=== PATIENT | male | born 1985 | race African-American/Black ===

== ENCOUNTER 2022-09-01 16:03 | Outpatient (CLI) | payer SELFPAY | END 2022-09-01 16:04 | disposition home or self-care (01) | PROVIDERS: PCP Family Medicine; Visit Provider Family Medicine | DX: F29 Unspecified psychosis not due to a substance or known physiological condition (principal); R45.851 Suicidal ideations | CPT/HCPCS: A0998 ==

== ENCOUNTER 2022-11-19 21:50 | Outpatient (CLI) | payer OTHER, SELFPAY | END 2022-11-19 21:51 | disposition home or self-care (01) | LOC: AMB 11-25 17:00 | PROVIDERS: Visit Provider Family Medicine | DX: F10.129 Alcohol abuse with intoxication, unspecified (principal) | CPT/HCPCS: A0425; A0429 ==

== ENCOUNTER 2022-11-19 22:25 | Emergency (ER) | payer OTHER, SELFPAY ==
[2022-11-19 22:30] VITALS: BP 130/84; PULSE 88; RESP 20; TEMP 36.5; O2SAT 100
[2022-11-19 23:00] VITALS: O2SAT 98
--- NOTE | 2022-11-19 23:03 | ED.GENADULT ---
HPI - General Adult General Chief complaint: Alcohol/Intoxication Stated complaint: ETOH Time Seen by Provider: 11/19/22 22:50 Source: patient and EMS History of Present Illness HPI narrative: 36-year-old male referred by the police department because of alcohol intoxication. He was with his ?foster family? this evening, he was drinking alcohol which unfortunately is not uncommon for him. He ran out of alcohol and attempted to get into the family car to drive to get more alcohol. The family called 911 and police responded. Because of intoxication, he was brought to the emergency department. It was reported that he was not aggressive or combative on the scene via EMS. Apparently his ?foster mother? was hiding from him, fearful. There was no reported aggression. He has not made any threats against this person. He does not verbalize any anger or frustration with her. He reports that he is his own guardian. His ?foster family? took him in a few years ago and he has continued to live with them. It does not sound as though they are blood family but he does relate to them culturally. He states that he has been living in [facility] for several years within the past decade as well. He does struggle with depression and review of the record shows that he has been evaluated for depression here in the ED. He denies any current suicidality, homicidality. 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 He is not interested in going to detox or any type of alcohol treatment program at this time. He denies any other drug use. He states that his past medical history is benign, no major long-term health problems. Prescriptions are listed for Adderall and diazepam which he states that he does not currently use. Social history in previous notes are reviewed. ROS is otherwise negative times 12 systems. Related Data Home Medications Medication Instructions Recorded Confirmed dextroamphetamine-amphetamine ER 1 cap PO DAILY 11/19/22 11/19/22 15 mg 24hr capsule,extend release diazepam 5 mg tablet 5 mg PO BID PRN 11/19/22 11/19/22 Allergies Allergy/AdvReac Type Severity Reaction Status Date / Time No Known Drug Allergies Allergy Verified 11/19/22 22:28 Exam Const: Vital Signs, click to edit/add: Vital Signs - 24 hr 11/19/22 22:30 Temperature 97.7 F Pulse Rate [Pulse Oximeter] 88 Respiratory Rate 20 Blood Pressure [Ri ght Upper Arm] 130/84 Pulse Oximetry 100 Oxygen Delivery Me thod Room Air Documenting provider has reviewed patient's vital signs: yes Common normals: no apparent distress and alert General appearance: cooperative, comfortable and well kempt Other: He is resting in the bed and arouses for conversation. He answers quickly and appropriately. He is fully oriented to person, place and situation. He can discuss current events, his feelings and alcohol use. No evidence of any psychosis or deceptive type behavior. HENMT: Common normals: normocephalic and head/scalp atraumatic Head and scalp: normocephalic and atraumatic Face and sinus: normal facial exam Mouth: oral and palatal mucosa normal Eye: Common normals: conjunctivae normal General eye: normal appearance of both eyes Conjunctiva: conjunctiva(e) normal Neck & C-Spine: Common normals: no lymphadenopathy General: normal visual inspection Resp: Common normals: normal respiratory effort, no use of accessory muscles and clear to auscultation bilaterally Effort & inspection: able to speak in complete sentences Auscultation: clear to auscultation bilaterally Cardio: Common normals: regular rate, regular rhythm, S1 normal heart sound, S2 normal heart sound and no murmurs Rate: regular rate Rhythm: regular rhythm Heart sounds: S1 normal and S2 normal GI: Common normals: Normal to inspection, nondistended, normoactive bowel sounds present, soft to palpation, non-tender, no hepatosplenomegaly and no masses Palpation: soft and no hepatosplenomegaly Extremity: Common normals: normal to inspection and normal capillary refill Neuro: Sensorium/orientation: alert Speech: speech normal Motor exam: strength 5/5 throughout and no tremor noted Psych: Common normals: speech normal Appearance: well kempt Activity/motor behavior: appropriate eye contact Speech: normal speech Mood and affect: euthymic mood Insight: fair Judgement: fair Skin: Common normals: no rashes or lesions noted General skin exam: no rashes or lesions noted Course Course ED Course: Alcohol intoxication with no signs of dangerous medical complications. Patient is protecting his airway, showing no signs of neurological impairment and no acute mental health crisis or suicidal thoughts. At this time, he may be discharged under the care of a responsible adult and is reminded not to drive if he is consuming alcohol. At this time, he declines detox or alcohol treatment referral. Referral for these programs against his will is not typically successful. No blood work is recommended at this time. Law enforcement will be notified to determine if they have any further business with the patient. Vital Signs Vital signs: Initial Vital Signs Temperature 97.7 F 11/19/22 22:30 Temperature Source Temporal Artery Scan 11/19/22 22:30 Pulse Rate 88 11/19/22 22:30 Respiratory Rate 20 11/19/22 22:30 Blood Pressure 130/84 11/19/22 22:30 Blood Pressure Mean 99 11/19/22 22:30 Pulse Oximetry 100 11/19/22 22:30 Oxygen Delivery Method Room Air 11/19/22 22:30 Vital Signs Temperature 97.7 F 11/19/22 22:30 Pulse Rate 88 11/19/22 22:30 Respiratory Rate 20 11/19/22 22:30 Blood Pressure 130/84 11/19/22 22:30 Pulse Oximetry 100 11/19/22 22:30 Oxygen Delivery Method Room Air 11/19/22 22:30 Temperature 97.7 F 11/19/22 22:30 Pulse Rate 88 11/19/22 22:30 Respiratory Rate 20 11/19/22 22:30 Blood Pressure 130/84 11/19/22 22:30 Pulse Oximetry 100 11/19/22 22:30 Oxygen Delivery Method Room Air 11/19/22 22:30 Discharge Plan Discharge Clinical Impression: Alcoholic intoxication Patient Disposition: Home w/ Parent or Adult Condition: Stable Instructions: Alcohol Intoxication (ED) Additional Instructions: As we discussed, your intoxicated with alcohol but are not in danger of medical complications from intoxication. Your neurologically intact and showing no signs of respiratory suppression or other dangerous consequences. I do not have any criteria to medically hold you in the hospital at this time. You have declined referral to a detoxification center or an alcohol treatment program. I do recommend that you quit drinking alcohol as it will only worsen your depression. Come back to the emergency department if you have suicidal thoughts or need referral for alcohol treatment. I would also remind you not to drive a car when you have been drinking alcohol. Activity Level: No Restrictions Discharge Diet: Regular Prescriptions: No Action diazepam 5 mg tablet 5 mg PO BID PRN dextroamphetamine-amphetamine 15 mg capsule,extended release 24hr 1 cap PO DAILY Follow Up/Referrals: Rafy Bridges MD [Primary Care Provider] - Stand Alone Forms: [facility] RX Info Instructions
--- NOTE | 2022-11-19 23:23 | ED.NURSE ---
patients mother contacted and updated that he is ready to be discharged and needs a ride home. Mother stated that she was concerned that he had some bleeding when he used the bathroom today. Patient confirmed that he has hemerroids that occasionally bleed and he is not concerned. Telecommunications Repairer then attempted to call mother back and was sent to [phone].
--- NOTE | 2022-11-19 23:30 | ED.NURSE ---
patients father contacted and updated on the patients plan. father states that one of them will be in to pick him up
[2022-11-20 00:06] VITALS: BP 122/74; PULSE 84; RESP 20; TEMP 36.8; O2SAT 100
== END 2022-11-20 00:07 | disposition home or self-care (01) ==
PROVIDERS: Emergency Provider Family Medicine
DX: F10.129 Alcohol abuse with intoxication, unspecified (principal)
CPT/HCPCS: 94761; 99282; 99283